=== PATIENT | female | born 1995 | race Caucasian/White ===

== ENCOUNTER 2019-09-13 07:23 | Inpatient (IN) | payer MEDICAID ==
[2019-09-13] VITALS (45 sets, daily range): BP systolic 97–122; BP diastolic 54–85; PULSE 66–101; TEMP 97.6–99.1
[~2019-09-13] VITALS: Ht 167.6 cm; Wt 77.7 kg
[~2019-09-13 07:23] MED LIST: IBU600 MG PO; IRON325 MG PO; PRENATAL1 TA1 PO
--- NOTE | 2019-09-13 08:00 | NUR ---
PT HERE FOR INDUCTION OF LABOR. FHT'S FOUND IN THE 130'S WITH MODERATE VARIABILITY AND ACCELS. IV STARTED IN LEFT HAND, LABS DRAWN, LR INFUSING WITHOUT DIFFICULTY. ASSESSMENT COMPLETED. CONSENTS SIGNED. PT'S MOTHER IS HER SUPPORT PERSON AND IS AT HER BEDSIDE.
[2019-09-13] MEDS ORDERED: PRENATAL MVI PO (08:18)
[2019-09-13] MEDS ORDERED: NATURAL IRON65 MG (08:20)
--- NOTE | 2019-09-13 08:45 | NUR ---
0833-DR CONLEY IN TO SEE PT. SVE /-2. ATTEMPTED AROM AT 0835. DR CONLEY UNCERTAIN IF HER WATER DID BREAK. STATES CERVIX IS VERY POSTERIOR. WILL MONITOR FOR FLUID LEAKAGE.
[2019-09-13 08:48] LABS: BASO % 0.2 % (0.0-2.0); EOS # 0.3 (0.0-0.7); EOS % 3.1 % (0-4.0); GRAN # 6.5 (1.4-6.5); GRAN % 71.7 % (42.2-75.2); HEMATOCRIT 39.6 % (37.0-47.0); HEMOGLOBIN 13.3 g/dl (12.5-16.0); LYMPH # 1.7 (1.2-3.4); LYMPH % 18.4 % (20.0-51.0); MEAN CELL VOLUME 93 fl (80.0-100.0); MEAN CORPUSCULAR HEMOGLOBIN 31 pg (27.0-31.0); MEAN CORPUSCULAR HGB CONC 34 g/dl (33.0-37.0); MEAN PLATELET VOLUME 12.9 fl (7.4-10.4); MONO # 0.5 (0.1-0.6); PLATELET COUNT 115 K/mm3 (130-400); RED BLOOD COUNT 4.27 M/mm3 (4.10-5.30); REDCELL DISTRIBUTION WIDTH-CV 13.7 % (11.5-14.5)
--- NOTE | 2019-09-13 09:00 | NUR ---
PT REPORTS SHE FEELS LIKE SHE IS LEAKING FLUID. CHUX PAD CHANGED-CLEAR FLUID NOTED ON PAD.
--- NOTE | 2019-09-13 10:46 | NUR ---
MD REQUESTING EPIDURAL. PHONE DAVID ANTOINE CRNA, AT 1036 TO COME FOR EPIDURAL PLACEMENT. HE IS ON HIS WAY. LR BOLUS STARTED AFTER CALLING EULALIO.
--- NOTE | 2019-09-13 11:15 | NUR ---
1106-DAVID ANTOINE CRNA, HERE FOR EPIDURAL PLACEMENT. PT POSITIONED SITTING UP. TEST DOSE GIVEN AT 1115 WITH NO ABNORMAL SYMPTOMS REPORTED BY PATIENT.
--- NOTE | 2019-09-13 11:45 | NUR ---
PT REPORTING PAIN RELIEF FROM EPIDURAL.
--- NOTE | 2019-09-13 12:00 | NUR ---
CADE CATHETER PLACED WITH CLEAR YELLOW URINE RETURNED. SVE /-2. PT RESTING COMFORTABLY IN BED. REPOSITIONED WITH PEANUT BALL BETWEEN LEGS. FHT'S WITH MODERATE VARIABILITY.
--- NOTE | 2019-09-13 12:55 | NUR ---
DR CONLEY CALLED HERE TO CHECK ON PT. STATUS UPDATE GIVEN: SVE /-2, EPIDURAL PLACED, CADE PLACED, CONTRACTIONS EVERY 2-3 MINUTES.
--- NOTE | 2019-09-13 14:00 | NUR ---
SVE 7/100/-2. BULGING BAG OF WATER FELT WITH EXAM. PT REPOSITIONED.
--- NOTE | 2019-09-13 14:15 | NUR ---
CALLED DR CONLEY AT 1410 WITH SVE UPDATE NAD NOTIFIED HIM THERE IS A BULGING BAG OF WATER
--- NOTE | 2019-09-13 14:45 | NUR ---
SVE REMAINS UNCHANGED. PT REPOSITIONED. DR CONLEY NOTIFIED.
--- NOTE | 2019-09-13 16:15 | NUR ---
SVE AT 1604: 10/100/+1, SROM WITH SVE WITH CLEAR FLUID RETURNED. FHT'S WITH MODERATE VARIABILITY. PT POSITIONED FOR DELIVERY. PT REPORTS FEELING SOME CONTRACTIONS BUT DENIES PAIN.
--- NOTE | 2019-09-13 16:33 | NUR ---
DR CONLEY HERE AT 1621. PT PREPPED AND POSITIONED FOR DELIVERY. PUSHING STARTED AT 1624. OF FEMALE INFANT OVER INTACT PERINEUM AT 1633. PITOCIN STOPPED AFTER DELIVERY OF INFANT. BABY TO MOM'S CHEST AFTER DELIVERY.
--- NOTE | 2019-09-13 16:45 | NUR ---
DR CONLEY AT BEDSIDE DELIVERING PLACENTA. MODERATE FREE FLOW BLEEDING. RETAINED PLACENTA PRODUCTS REMOVED BY DR CONLEY. PITOCIN INFUSING AT 333ML/HR AFTER DELIVERY OF PLACENTA. FUNDUS FIRM WITH MINIMAL BLEEDING AFTER DR CONLEY DONE REMOVING PLACENTAL FRAGMENTS.
--- NOTE | 2019-09-13 17:00 | NUR ---
FUNDUS FIRM WITH VERY MINIMAL BLEEDING OBSERVED. ICE PACK TO PERINEUM. PT DENIES PAIN. IN BED HOLDING BABY.
--- NOTE | 2019-09-13 19:15 | NUR ---
1914- EPIDURAL CATHETER REMOVED WITH BLUE TIP INTACT. PT ASSISTED TO AMBULATE TO BATHROOM. UNABLE TO VOID. PT PERFORMS PERICARE. CLEAN GOWN, PAD, AND ICEPACK PROVIDED. 1929- PT AMBULATES TO ROOM 207. BELONGINGS SENT WITH PT. PT ORIENTED TO ROOM AND CALL LIGHTS. QUESTIONS ANSWERED. PLAN OF CARE DISCUSSED. NO FURTHER NEEDS AT THIS TIME
[2019-09-14 00:30] VITALS: BP 131/100; PULSE 71; TEMP 98.1
[2019-09-14 04:50] VITALS: BP 97/68; PULSE 75; TEMP 98.1
[2019-09-14 08:00] VITALS: BP 108/68; PULSE 80; TEMP 98
[2019-09-14] MEDS ORDERED: IBU600 MG PO (09:37)
[2019-09-14 18:45] VITALS: BP 114/68; PULSE 76; TEMP 98.8
--- NOTE | 2019-09-14 19:10 | NUR ---
Discharge instructions reviewed with pt, questions invited and answered. Ambulatory off unit with infant, accompanied by this RN.
== END 2019-09-14 19:10 | disposition home or self-care (01) | DRG 806 ==
LOC: LDR 07:23 → OB 07:23 → LDR 09:47 → OB 22:07
PROVIDERS: ADMIT Obstetrics & Gynecology
PROC: 10E0XZZ Delivery of Products of Conception, External Approach (ICD-10-PCS; principal; 2019-09-13)
PROC: 10907ZC Drainage of Amniotic Fluid, Therapeutic from Products of Conception, Via Natural or Artificial Opening (ICD-10-PCS; 2019-09-13)
DX: O48.0 Post-term pregnancy (principal); O99.12 Other diseases of the blood and blood-forming organs and certain disorders involving the immune mechanism complicating childbirth; Z37.0 Single live birth; D69.6 Thrombocytopenia, unspecified; Z3A.40 40 weeks gestation of pregnancy; Z86.14 Personal history of Methicillin resistant Staphylococcus aureus infection; O69.81X0 Labor and delivery complicated by cord around neck, without compression, not applicable or unspecified
CPT/HCPCS: J2590; J7120

== ENCOUNTER 2023-05-05 09:59 | Inpatient (IN) | payer MEDICAID ==
[2023-05-05] VITALS (15 sets, daily range): BP systolic 91–1107; BP diastolic 34–88; PULSE 58–89; TEMP 98.4–98.7
[~2023-05-05] VITALS: Ht 167.6 cm; Wt 80.5 kg
[~2023-05-05 09:59] MED LIST changes: +NATURAL IRON65 MG; +PRENATAL MVI PO; +ROXICODONE 55 MG/TAB PO
--- NOTE | 2023-05-05 10:10 | NUR ---
PT AMBULATORY TO UNIT WITH GRANDMA. PT CHANGED INTO CLEAN GOWN. PT COMFORTABLE IN BED. THIS RN AT BEDSIDE TO PLACE TOCO AND EFM. EFM TRACING CAT I. PT REPORTS FEELING POSITIVE MOVEMENT. PT DENIES FEELING ANY CTX. PT DENIES LOF AND DENIES VAGINAL BLEEDING. PT VITAL SIGNS STABLE. POC DISCUSSED WITH PT. PT VERBALIZES AGREEMENT.
[2023-05-05] MEDS ORDERED: LR 1,000 ML IV SCH (10:15)
[2023-05-05] MEDS ORDERED: Ketorolac 60 MG/2 ML VIAL IM ONE (10:23)
[2023-05-05] MEDS ORDERED: NS 20 ML IV ONE (10:26)
[2023-05-05] MEDS ORDERED: Ondansetron 4 MG/2 ML VIAL ONE (10:26)
[2023-05-05] MEDS ORDERED: Oxytocin 10 UNITS/ML VIAL ONE ×2 (10:26→12:11)
[2023-05-05 10:59] LABS: BASO % 0.3 % (0.0-2.0); EOS # 0.1 K/mm3 (0.0-0.7); EOS % 1.6 % (0.0-4.0); GRAN # 4.1 K/mm3 (1.4-6.5); GRAN % 66.9 % (42.2-75.2); HEMATOCRIT 38.2 % (37.0-47.0); HEMOGLOBIN 13.3 g/dl (12.5-16.0); LYMPH # 1.5 K/mm3 (1.2-3.4); LYMPH % 24.3 % (20.0-51.0); MEAN CELL VOLUME 94 fl (80.0-100.0); MEAN CORPUSCULAR HEMOGLOBIN 33 pg (27-31); MEAN CORPUSCULAR HGB CONC 35 g/dl (33.0-37.0); MEAN PLATELET VOLUME 11.9 fl (7.4-10.4); MONO # 0.4 K/mm3 (0.1-0.6); MONO % 6.4 % (1.7-9.3); PLATELET COUNT 109 K/mm3 (130-400); RED BLOOD COUNT 4.06 M/mm3 (4.10-5.30); REDCELL DISTRIBUTION WIDTH-CV 14.1 % (11.5-14.5)
[2023-05-05] MEDS ORDERED: Meperidine 50 MG/ML 1 ML VIAL ONE (11:44)
[2023-05-05] MEDS ORDERED: LR 1,000 ML IV ONE ×2 (11:45→12:12)
[2023-05-05] MEDS ORDERED: EPINEPHrine 1 MG/1 ML Ampule ONE (11:48)
[2023-05-05] MEDS ORDERED: Naloxone 0.4 MG/ML VIAL IV PRN (12:30)
[2023-05-05] MEDS ORDERED: oxyCODONE 5 MG TAB PO PRN (12:30)
[2023-05-05] MEDS ORDERED: Acetaminophen 500 MG TAB PO SCH ×2 (12:30→23:00)
[2023-05-05] MEDS ORDERED: LR 1,000 ML IV PRN (12:30)
[2023-05-05] MEDS ORDERED: Measles/Mumps/Rubella Virus Vaccine Live w Diluent 0.5 ML VIAL SQ SCH (12:30)
[2023-05-05] MEDS ORDERED: Loratadine 10 MG TAB PO PRN (12:30)
[2023-05-05] MEDS ORDERED: Morphine 4 MG/ML VIAL IV PRN (12:30)
[2023-05-05] MEDS ORDERED: Magnes Hydrox (MOM) 80 MG/ML 30 ML CUP PO PRN (12:30)
[2023-05-05] MEDS ORDERED: Ondansetron 4 MG/2 ML VIAL IV PRN (12:30)
[2023-05-05] MEDS ORDERED: Sennosides/Docusate 8.6-50 MG TAB PO SCH (17:00)
[2023-05-05] MEDS ORDERED: Ibuprofen 600 MG TAB PO SCH (18:29)
[2023-05-05] MEDS ORDERED: traZODone 50 MG TAB PO PRN (21:00)
[2023-05-06 00:14] VITALS: BP 109/68; PULSE 71; TEMP 98
[2023-05-06 05:00] VITALS: BP 121/77; PULSE 69; TEMP 97.8
[2023-05-06 08:15] VITALS: BP 111/69; PULSE 70; TEMP 98.1
--- NOTE | 2023-05-06 12:52 | NUR ---
Initial visit; Patient thanked [employer] for looking in on her ad offering congratulations and God's blessings for the of her son. Electric Motor Tester thanked mom for choosing [facility] and wished her and her family well.
[2023-05-06 16:00] VITALS: BP 113/78; PULSE 66; TEMP 98.6
--- NOTE | 2023-05-06 18:30 | NUR ---
Report recieved at this time. Sitting on edge of bed while holding . POC reviewed and whiteboard updated.
[2023-05-06 19:00] VITALS: BP 106/71; PULSE 77; TEMP 97.7
--- NOTE | 2023-05-06 19:00 | NUR ---
VS and assessment completed. Reports that "it hurts and pulls my scar when I stand." Reports that she is limiting her ambulation due to the pain. Denies pain while resting. ABD binder on the end of the bed; this nurse offered to assist in put the abd binder back on, patient declined. Educated patient regarding the importance of ambulation and encouraged to stand up straing with ambulation. Cold pack to bedside due to patient reporting a burning sensation.
[2023-05-07 07:40] VITALS: BP 122/78; PULSE 76; TEMP 98.1
== END 2023-05-07 11:55 | disposition home or self-care (01) | DRG 787 ==
LOC: OB 09:59 → LDR 13:48 → OB 05-07 11:55
PROVIDERS: ADMIT Obstetrics & Gynecology
PROC: 10D00Z1 Extraction of Products of Conception, Low, Open Approach (ICD-10-PCS; principal; 2023-05-05)
DX: O34.211 Maternal care for low transverse scar from previous cesarean delivery (principal); O99.12 Other diseases of the blood and blood-forming organs and certain disorders involving the immune mechanism complicating childbirth; O36.63X0 Maternal care for excessive fetal growth, third trimester, not applicable or unspecified; D69.6 Thrombocytopenia, unspecified; Z3A.39 39 weeks gestation of pregnancy; Z37.0 Single live birth
CPT/HCPCS: J0171; J0665; J0690; J1885; J2175; J2405; J2590; J7120